=== PATIENT | female | born 1970 ===

== ENCOUNTER 2021-05-03 09:15 | Inpatient (IN) | payer OTHER ==
[~2021-05-03] VITALS: Ht 157.5 cm; Wt 89.8 kg
[2021-05-03] MEDS ORDERED: CRESTOR20 MG PO (09:44)
[2021-05-03] MEDS ORDERED: CARVEDILOL12.5 MG (09:44)
[2021-05-03] MEDS ORDERED: COZAAR50 MG PO (09:45)
[2021-05-03] MEDS ORDERED: D3 + K2 DOTS 11 EACH PO (09:45)
[2021-05-03] MEDS ORDERED: HYDRALAZINE HCL50 MG PO (09:45)
[2021-05-03] MEDS ORDERED: CENTRUM ADULT120 MCG PO (09:46)
[2021-05-07] MEDS ORDERED: SERTRALINE HCL100 MG (09:47)
[2021-05-07] MEDS ORDERED: RAMELTEON8 MG (09:47)
[2021-05-07] MEDS ORDERED: BUSPIRONE HCL10 MG (09:48)
[2021-05-07] MEDS ORDERED: BUPROPION XL150 MG (09:48)
[2021-05-07] MEDS ORDERED: VITAMIN D3250 MCG (09:48)
[2021-05-07] MEDS ORDERED: CLONAZEPAM1 MG (09:48)
[2021-05-07] MEDS ORDERED: OXYC1TAB9 (09:48)
[2021-05-07] MEDS ORDERED: LOSARTAN-HCTZ1 EAC2 (09:48)
[2021-05-07] MEDS ORDERED: RESTORIL30 MG (09:49)
== END 2021-05-09 14:09 | disposition home or self-care (01) | DRG 331 ==
LOC: SURH 05-07 05:57 → O/R 05-07 05:57 → SURH 05-07 07:00
PROVIDERS: ADMIT Colon & Rectal Surgery; ATTEND Colon & Rectal Surgery
PROC: 0DJD8ZZ Inspection of Lower Intestinal Tract, Via Natural or Artificial Opening Endoscopic (ICD-10-PCS; 2021-05-07)
PROC: 4A1BXSH Monitoring of Gastrointestinal Vascular Perfusion using Indocyanine Green Dye, External Approach (ICD-10-PCS; 2021-05-07)
PROC: 0DTE4ZZ Resection of Large Intestine, Percutaneous Endoscopic Approach (ICD-10-PCS; principal; 2021-05-07 07:00)
DX: K57.32 Diverticulitis of large intestine without perforation or abscess without bleeding (principal); Z20.822 Contact with and (suspected) exposure to COVID-19